=== PATIENT | female | born 1940 | race Caucasian/White ===

== ENCOUNTER 2017-08-25 17:53 | Inpatient (IN) | payer MEDICARE ==
[2017-08-25 20:23] LABS: Amphetamine Not Detected (NotDetected); Methadone Not Detected (NotDetected); Methamphetamine Not Detected (NotDetected)
[2017-08-25 20:59] LABS: #Eosinphils 0.1 thou/uL (0.0-0.7); #Lymphocytes 1.2 thou/uL (1.20-3.40); #Monocytes 0.4 thou/uL (0.11-0.59); #Neutrophils 5.2 thou/uL (1.40-6.50); %Basophils 0.3 % (0.0-1.0); %Eosinophils 1.7 % (0.0-10.0); %Lymphocytes 16.7 % (21.0-51.0); %Monocytes 6.4 % (0.0-10.0); Hematocrit 38.9 % (36.0-47.0); Mean Platelet Volume 7.4 fL (7.4-10.4); Red Blood Cell (RBC) Count 4.07 mill/uL (4.20-5.40); White Blood Cell (WBC) Count 6.9 thou/uL (4.8-10.8)
[2017-08-25 21:03] LABS: PTT 25.7 SEC (22.9-36.1); Prothrombin Time 14.4 SEC (12.0-14.7)
[2017-08-25 21:23] LABS: ALT (SGPT) 11 U/L (8-55); AST (SGOT) 21 U/L (5-34); Alkaline Phosphatase 60 U/L (40-150); Anion Gap 15 mmol/L (10-20); BUN (Urea Nitrogen) 11 mg/dL (9.8-20.1); Bilirubin, Total 0.7 mg/dL (0.2-1.2); CK (CPK) 85 U/L (29-168); Calc. Creatinine Clearance 0 mL/min (70-130); Calcium 8.4 mg/dL (7.8-10.44); Carbon Dioxide 20 mmol/L (23-31); Chloride 107 mmol/L (98-107); Estimated GFR-MDRD 69; Globulin 2.8 g/dL (2.4-3.5); Lipase 979 U/L (8-78); Protein, Total 6.5 g/dL (6.0-8.3); Troponin I 0.016 ng/mL (< 0.028)
[2017-08-25] MEDS ORDERED: Meropenem 1 GM in Sodium Chloride 0.9% 100 ML IVPB SCH (21:30)
--- NOTE | 2017-08-25 21:31 | RAD ---
PORTABLE AP CHEST RADIOGRAPH: Date: 08-25-17 History: Abdominal pain with vomiting. Comparison: None available. FINDINGS: Cardiac silhouette and pulmonary vasculature are within normal limits. There is symmetric biapical p leural thickening noted. Lungs are otherwise clear. Vascular calcifications are seen in the thoracic aorta. Vertebroplasty changes are seen involving a few of the lower thoracic vertebral bodies. IMPRESSION: No acute cardiopulmonary process. POS: MAGY
[2017-08-25 21:38] LABS: Bilirubin Negative (Negative); Blood, Urine Trace (Negative); Glucose, Urine (Dipstick) Negative (Negative); Ketone, Urine Negative (Negative); Nitrite Negative (Negative); Protein, Urine (Dipstick) Negative (Neg-Trace); Urobilinogen 0.2 mg/dL (0.2-1.0)
[2017-08-25 21:39] LABS: Bacteria/HPF None Seen HPF (None Seen); Hyaline Casts/LPF 0-3 HYALINE CAST LPF (0-3 Hyaline); Squamous Epithelial None Seen HPF (0-3); WBC/HPF None Seen HPF (0-3)
--- NOTE | 2017-08-25 21:53 | ULT ---
RIGHT UPPER QUADRANT ULTRASOUND: Date: 08-25-17 History: Abdominal pain with vomiting. FINDINGS: The gallbladder is dilated. There is mild gallbladder wall thickening with the gallbladder wall sherri uring 0.5 cm in thickness. Small amount of echogenic material seen in the gallbladder lumen suggesti ng sludge. No gallbladder calculus is visualized. There is a tiny amount of pericholecystic fluid id entified. The visualized portions of the pancreas, visualized portions of the IVC, liver and right kidney demo nstrate a normal sonographic appearance. The right kidney measures 9.3 cm in length. IMPRESSION: 1. Dilatation of the gallbladder with gallbladder wall thickening and pericholecystic fluid. A small amount of sludge is seen in the gallbladder lumen, but no gallbladder calculus is seen. In the agustín ect clinical scenario, findings could be related to cholecystitis. If clinically indicated, a hepato biliary study could be performed. 2. Dilatation of the extrahepatic common duct of uncertain etiology. ERCP may be helpful for further evaluation. POS: CYNTHIA
[2017-08-25] MEDS ORDERED: Ondansetron HCl/PF 4 MG/2 ML Vial IVP PRN (22:46)
[2017-08-25] MEDS ORDERED: Ondansetron ODT 4 MG TAB SL PRN (22:46)
[2017-08-26] MEDS: D5 1/2 NS w/20 mEq KCL 1,000 ML IV SCH ×2 (00:04→09:03)
[2017-08-26 00:26] VITALS: BMI 34.0
[2017-08-26] MEDS ORDERED: Ondansetron HCl/PF 4 MG/2 ML Vial IVP PRN ×2 (00:38→14:59)
[2017-08-26] MEDS ORDERED: Acetaminophen 1,000 MG in Premix Bag 1 BAG IVPB PRN (00:39)
[2017-08-26] MEDS ORDERED: Ketorolac Tromethamine 30 MG/ML VIAL IVP PRN (00:39)
[2017-08-26] MEDS ORDERED: Sodium Chloride 0.9% 1,000 ML IV SCH (00:45)
[2017-08-26] MEDS ORDERED: Meropenem 1 GM in Sodium Chloride 0.9% 100 ML IVPB SCH (06:00)
[2017-08-26 06:14] LABS: #Eosinphils 0.3 thou/uL (0.0-0.7); #Lymphocytes 1.1 thou/uL (1.20-3.40); #Monocytes 0.6 thou/uL (0.11-0.59); #Neutrophils 2.8 thou/uL (1.40-6.50); %Basophils 0.6 % (0.0-1.0); %Eosinophils 5.5 % (0.0-10.0); Hematocrit 34.8 % (36.0-47.0); Mean Platelet Volume 7.8 fL (7.4-10.4); Red Blood Cell (RBC) Count 3.59 mill/uL (4.20-5.40); White Blood Cell (WBC) Count 4.8 thou/uL (4.8-10.8)
[2017-08-26 06:40] LABS: ALT (SGPT) 9 U/L (8-55); AST (SGOT) 15 U/L (5-34); Alkaline Phosphatase 52 U/L (40-150); Anion Gap 9 mmol/L (10-20); BUN (Urea Nitrogen) 9 mg/dL (9.8-20.1); Bilirubin, Direct 0.3 mg/dL (0.1-0.3); Bilirubin, Total 0.9 mg/dL (0.2-1.2); Calc. Creatinine Clearance 91 mL/min (70-130); Calcium 8.2 mg/dL (7.8-10.44); Carbon Dioxide 24 mmol/L (23-31); Chloride 109 mmol/L (98-107); Estimated GFR-MDRD 74; Lipase 197 U/L (8-78); Protein, Total 5.7 g/dL (6.0-8.3)
[2017-08-26] MEDS ORDERED: traMADol HCl 50 MG TAB PO PRN ×2 (08:19→16:40)
[2017-08-26] MEDS ORDERED: ALPRAZolam 0.5 MG TAB PO PRN (08:19)
--- NOTE | 2017-08-26 08:41 | HP ---
HISTORY OF PRESENT ILLNESS: Madison North is a 77-year-old female who lives with her children in [place]. The patient had a first episode of epigastric upper abdominal pain, nausea, radiation to her back after eating a Big Mac last night. She denies previous episodes of similar symptoms. She had a gallbladder ultrasound that revealed some sludge and upper limits normal bile duct as describ ed. Otherwise, there are no abnormalities on her ultrasound. She had a CT scan of abdomen and pelv is at 2:56 p.m. yesterday in [place] demonstrating an enlarged gallbladder and no other significant findings. She was noted to have a lipase of 979, in [place] it was greater than 1000 at 3:00 in afternoon, it is 197 this morning. Her liver function tests otherwise are normal. ALLERGIES: GABAPENTIN, PENICILLIN, CARBAMAZEPINE. FENTANYL causes GI upset. ERYTHROMYCIN nausea. SULFA, rash. TOBACCO AND ALCOHOL: None. MEDICATIONS: Levothyroxine 200 mcg a day, tramadol 50 mg a day, Xanax 0.5 mg as needed, Meloxicam 7 .5 mg once a day. PAST MEDICAL HISTORY: 1. History of left breast cancer, mastectomy treated in the early , mastectomy by Dr. Zohaib mohan, followed at [facility]. No chemotherapy, no radiation therapy 2. Neuropathy. 3. Chronic low back pain. 4. Hypothyroidism. 5. Anxiety. PAST SURGICAL HISTORY: Left mastectomy in 1992, Dr. Sandhu, tonsillectomy as a child, pelvic sli ng for urinary incontinence Dr. Kern in 2008, she still wears a diaper. She has some persistent i ncontinence, but not as bad as before her pelvic sling. Left total hip replacement, ORIF ankle, kne e surgery, colonoscopy by Dr. Avila in the last few years, thoracic spine surgery for a disk proble m, bilateral shoulder surgery. REVIEW OF SYSTEMS: Ten point noncontributory. PHYSICAL EXAMINATION: VITAL SIGNS: Weight 89 kilograms, 172/75, 83, 20, 98.8 degrees. HEENT: Unremarkable. LUNGS: Clear to auscultation. CARDIAC: Regular rate and rhythm without murmur or gallop. ABDOMEN: Soft. Mild tenderness in the right upper quadrant with mild guarding, no peritoneal signs . EXTREMITIES: Unremarkable. ASSESSMENT AND PLAN: Resolved biliary pancreatitis. PLAN: Laparoscopic video cholecystectomy, cholangiogram, possible discharge home postoperatively. Risk of infection, bleeding, visceral biliary injury explained. She consents. Questions answered.
[2017-08-26] MEDS ORDERED: Meloxicam 7.5 MG TAB PO SCH (09:00)
[2017-08-26] MEDS ORDERED: Midazolam HCl 2 mg/2 ml Vial ONE (13:38)
[2017-08-26] MEDS ORDERED: Fentanyl 100 MCG/2 ML VIAL ONE (13:38)
[2017-08-26] MEDS ORDERED: Bupivacaine HCl 0.5%/Epinephrine 1:200,000/PF 30 ml Vial ONE (13:40)
[2017-08-26] MEDS ORDERED: Iothalamate Meglumine 60% 50 ML VIAL FS ONE (13:41)
[2017-08-26] MEDS ORDERED: Lidocaine 1% PF 5 ML VIAL ONE (14:03)
[2017-08-26] MEDS ORDERED: Glycopyrrolate 0.2 MG/ML 5 ML SYRINGE ONE (14:03)
[2017-08-26] MEDS ORDERED: Ondansetron HCl/PF 4 MG/2 ML Vial ONE (14:03)
[2017-08-26] MEDS ORDERED: Propofol 200 MG/20 ML VIAL ONE (14:03)
[2017-08-26] MEDS ORDERED: Ketorolac Tromethamine 30 MG/ML VIAL ONE (14:03)
[2017-08-26] MEDS ORDERED: Dexamethasone 20 MG/5 ML VIAL ONE (14:03)
[2017-08-26] MEDS ORDERED: SUGAMMADEX SODIUM 500 MG/5 ML VIAL ONE (14:47)
[2017-08-26] MEDS ORDERED: Promethazine HCl 25 MG/ML VIAL SLOW IVP PRN (14:59)
[2017-08-26] MEDS ORDERED: Promethazine HCl 25 MG/ML VIAL IM PRN (14:59)
[2017-08-26] MEDS ORDERED: HYDROmorphone 2 MG/ML VIAL SLOW IVP PRN (14:59)
[2017-08-26] MEDS ORDERED: Ibuprofen 600 MG TAB PO PRN (16:40)
[2017-08-26] MEDS ORDERED: Acetaminophen 500 MG TAB PO SCH (17:00)
[2017-08-26 18:04] VITALS: TEMP 98.6
[2017-08-26 18:43] VITALS: BP 155/75
--- NOTE | 2017-08-26 19:53 | OP ---
DATE OF PROCEDURE: 08/26/2017 PREOPERATIVE DIAGNOSIS: Biliary pancreatitis. POSTOPERATIVE DIAGNOSIS: Biliary pancreatitis. PROCEDURE: Laparoscopic video cholecystectomy, negative intraoperative cholangiograms. Fluoroscopy used. SURGEON: Dr. Je Otto ANESTHESIA: General. Local 0.5% Marcaine with epinephrine, 30 mL. PROCEDURE IN DETAIL: Patient taken to the operating room where under general anesthesia, abdomen wa s prepared with chloraprep, draped in routine fashion. Local anesthetic infiltrated into skin and s ubcutaneous tissue about each port site. Infraumbilical incision made and pneumoperitoneum to 15 mm Hg obtained with the Veress needle, replacing it with a 5 port. Video laparoscope inserted. Right subxiphoid incision made and 11 port placed. Right subcostal incision made mid clavicular anterior axillary lines and 5 ports placed. Fundus of the gallbladder grasped and reflected laterally. Cyst ic artery and duct dissected free after infundibulum grasped and reflected laterally. Critical view obtained. Cystic artery and duct doubly clipped proximally and opening made in the cystic duct and cholangiocath inserted and cholangiogram was obtained using fluoroscopy revealing free flow of cont rast into the duodenum without filling defects in the dilated common hepatic, common bile duct. Cys tic artery and duct doubly clipped proximally and divided and gallbladder and contents removed and s ubmitted to Pathology. Hemostasis gained with the cautery. Good hemostasis ensured. Irrigant and pneumoperitoneum evacuated. All instruments removed and all skin incisions approximated with interr upted subdermal 4-0 Monocryl and DermaGlue applied.
[2017-08-26] MEDS ORDERED: traZODone HCl 150 MG TAB PO SCH (21:00)
--- NOTE | 2017-08-27 00:36 | DIS ---
DATE OF ADMISSION: 08/25/2017 DATE OF DISCHARGE: 08/26/2017 DISCHARGE DIAGNOSES: Biliary pancreatitis, dilated bile duct. PROCEDURES: Laparoscopic video cholecystectomy. Normal cholangiograms. DISCHARGE MEDICATIONS: Tylenol, Motrin [id number], Ultram #22 refills. Resume home medicatio ns. DISCHARGE INSTRUCTIONS: Follow up with Dr. Otto in 2-3 weeks. Diet and activity as tolerated. N o lifting restrictions. HISTORY: A 77-year-old female presenting with biliary pancreatitis after eating a Big Mac. She was hospitalized overnight and her lipase improved. Clinically, her pancreatitis improved. She underw ent the above procedure and postoperatively was discharged home. Diet and activity as tolerated. N o restrictions.
[2017-08-27] MEDS ORDERED: Levothyroxine Sodium 100 MCG TAB PO SCH (06:00)
--- NOTE | 2017-08-27 08:36 | RAD ---
OPERATIVE CHOLANGIOGRAM ONE VIEW: History: Patient is status post cholecystectomy. FINDINGS: Contrast was injected in a borderline dilated duct with emptying into the duodenum and some reflux i nto the pancreatic duct. No definite filling defects identified. IMPRESSION: Unremarkable operative cholangiogram. POS: CYNTHIA
== END 2017-08-26 19:18 | disposition home or self-care (01) | DRG 419 ==
LOC: ERS 17:53 → SJJU 21:33
PROVIDERS: ADMIT Specialist; ATTEND Specialist
PROC: 0FT44ZZ Resection of Gallbladder, Percutaneous Endoscopic Approach (ICD-10-PCS; principal; 2017-08-26)
PROC: BF10YZZ Fluoroscopy of Bile Ducts using Other Contrast (ICD-10-PCS; 2017-08-26)
DX: K85.10 Biliary acute pancreatitis without necrosis or infection (principal); G62.9 Polyneuropathy, unspecified; Z85.3 Personal history of malignant neoplasm of breast; I10 Essential (primary) hypertension; F41.9 Anxiety disorder, unspecified
CPT/HCPCS: 36415; 47532; 71010; 76705; 80048; 80076; 80306; 81001; 82550; 82553; 83690; 83880; 84484; 85025; 85610; 85730; 88304; 93005; 96361; 96365; 96374; J0131; J0670; J1100; J1170; J1610; J1885; J1956; J2001; J2185; J2250; J2270; J2405; J2704; J3010; J7050; Q9961

== ENCOUNTER 2019-11-19 12:37 | Outpatient (CLI) | payer MEDICARE ==
--- NOTE | 2019-11-19 13:35 | MRI ---
EXAM: MRI Thoracic Spine WO Con PROVIDED CLINICAL HISTORY: Compression fracture COMPARISON: 02/12/2016 FINDINGS: Thoracic alignment remains normal. Interval vertebroplasty changes involving T9. Vertebroplasty zavala es involving T11 are again seen. Hemangioma formation within the T1 vertebral body redemonstrated. No focal concerning regional marrow signal abnormality is evident. There is interval but chronic appearing mild superior endplate compression deformity of T5. Vertebral body heights appear otherwise preserved. The thoracic spinal cord demonstrates normal signal and morphology. Central disc protrusion at T6-7 and a mild bulge at T7-8 are redemonstrated without significant centr al canal or foraminal narrowing noted throughout. Bowel effacement of the ventral spinal canal at T10-11 on the basis of retropulsion of the superior endplate. Facet arthritis changes are seen at T11 -12, T10-11 and to a lesser extent T9-10. IMPRESSION: No evidence for an acute process.
--- NOTE | 2019-11-19 14:28 | MRI ---
MRI LUMBAR SPINE WITHOUT CONTRAST: INDICATIONS: Osteoporosis wedge compression fracture. COMPARISON: Prior MRI lumbar spine dated 10/11/2015. CORRELATION: Lumbar spine films from 11/08/2019. FINDINGS: There has been compression deformity involving the superior endplate of L5 when compared to the 2014 exam. This corresponds to the plain film findings of 11/08/2019. There is loss of vertebral body heig ht, estimated in the 15% to 20% range. There is slight retropulsion of the posterior-superior corner of L5 with a broad-based disk bulge at L4-L5 now noted. There is high T2 and STIR signal within the L5 vertebra, in a linear fashion, consistent with a subac shakir compression fracture. The other lumbar vertebrae maintain height and alignment and exhibit normal signal. Vertebroplasty changes at the T11 vertebra are partially imaged on the sagittal view. L1-L2: Minimal disk bulge. Mild facet hypertrophy. No central canal or foraminal stenosis. L2-L3: Mild disk bulge. Mild facet hypertrophy. No significant central canal or foraminal stenosis. L3-L4: Slight anterolisthesis. Mild disk bulge. Mild to moderate facet hypertrophy. Mild central dominic l stenosis. L4-L5: Disk bulge is associated with mild retropulsion at the posterior-superior cortex of L5. These changes flatten the anterior thecal sac. There is associated facet and ligamentous hypertrophy compre ssing the posterior thecal sac. These changes result in moderate to severe central canal stenosis at this level. Bilateral foraminal encroachment secondary to disk bulge. An asymmetric disk projects to the left and the left foraminal stenosis is more pronounced. L5-S1: Mild disk bulge flattens the thecal sac. No significant central canal or foraminal stenosis. IMPRESSION: Compression deformity at L5 with mild edema present, indicating subacute compression injury. Slight r etropulsion of the posterior-superior corner of L5 associated with broad-based disk bulge from L4-L5 is seen. Posterior hypertrophic changes are prominent, resulting in moderate to severe central canal stenosis, as described above. POS: CYNTHIA
== END 2019-11-19 12:38 | disposition home or self-care (01) ==
LOC: TBSIIMAG 12:37
PROVIDERS: ATTEND Specialist
DX: S22.000A Wedge compression fracture of unspecified thoracic vertebra, initial encounter for closed fracture (principal); S32.000A Wedge compression fracture of unspecified lumbar vertebra, initial encounter for closed fracture; M51.86 Other intervertebral disc disorders, lumbar region; M48.061 Spinal stenosis, lumbar region without neurogenic claudication
CPT/HCPCS: 72146; 72148

== ENCOUNTER 2021-04-13 10:22 | Outpatient (CLI) | payer MEDICARE | END 2021-04-13 10:23 | disposition home or self-care (01) | LOC: BICMAMMO 10:22 | PROVIDERS: ATTEND Family Medicine | DX: Z13.820 Encounter for screening for osteoporosis (principal) | CPT/HCPCS: 77080 ==